=== PATIENT | female | born 1975 | race Caucasian/White ===

== ENCOUNTER 2016-07-19 00:28 | Emergency (ER) ==
[2016-07-19] MEDS ORDERED: SODIUM CHLORIDE 1,000 ML IV STA (00:37)
[2016-07-19 00:48] LABS: BASOPHILS # (AUTO) 0.1 K/uL (0-0.2); BASOPHILS % (AUTO) 0.8 % (0.0-3.0); EOSINOPHILS # (AUTO) 0.1 K/ul (0.0-0.7); EOSINOPHILS % (AUTO) 1.7 % (0.0-7.0); HEMATOCRIT 32.1 % (37.0-47.0); HEMOGLOBIN 10.7 g/dl (12.0-16.0); IMMATURE GRANULOCYTE % (AUTO) 0.3 % (0.0-5.0); LYMPHOCYTES % (AUTO) 39.3 (10.0-50.0); MEAN CORPUSCULAR HEMOGLOBIN 30.6 pg (27.0-31.0); MEAN CORPUSCULAR HGB CONC 33.3 (31.8-35.4); MEAN CORPUSCULAR VOLUME 91.7 fl (81.0-99.0); MONOCYTES # (AUTO) 0.6 K/uL (0.4-2.0); MONOCYTES % (AUTO) 7.6 (0-10); NEUTROPHILS # (AUTO) 3.8 K/ul (2.0-6.9); NEUTROPHILS % (AUTO) 50.3; PLATELET COUNT 244 10^3/uL (140-440)
[2016-07-19 00:58] LABS: SERUM PREGNANCY INTERNAL QC INTERNAL QC VALID
[2016-07-19 01:32] VITALS: BP 124/84; TEMP 98.2; BMI 30.8
[2016-07-19 01:34] LABS: ALANINE AMINOTRANSFERASE 14 U/L (12-78); ALBUMIN 3.8 g/dL (3.4-5.0); ALBUMIN/GLOBULIN RATIO 1.19; ALKALINE PHOSPHATASE 76 U/L (42-98); ASPARTATE AMINO TRANSFERASE 17 U/L (15-37); BILIRUBIN,TOTAL 0.17 mg/dL (0.00-1.20); BLOOD UREA NITROGEN 7 mg/dL (7-18); BUN/CREATININE RATIO 8.75; CALCIUM 10.5 mg/dL (8.2-10.2); CARBON DIOXIDE 26 mmol/L (21-32); CHLORIDE 101 mmol/L (98-107); CREATINE KINASE 55 U/L; GLUCOSE 102 mg/dL (70-110); SODIUM 135 mmol/L (136-145)
[2016-07-19 01:43] LABS: ABG BASE EXCESS 1 (-2.0-2.0); ABG HCO3 25.5 (22.0-26.0); ABG PCO2 39.6 mmHg (35-45); ABG PH 7.416 (7.35-7.45); ABG TCO2 27 (22.0-28.0)
--- NOTE | 2016-07-19 02:35 | CT ---
EXAM: CT angiogram chest with intravenous contrast 07/19/2016. Multi planar reformatted images obt ained. MIP and three-dimensional reconstructed images provided HISTORY: Chest pain COMPARISON: 12/27/2007 FINDINGS: The heart size appears within normal limits. No pericardial effusion. The aorta shows n o acute abnormality. There are no pulmonary arterial filling defects to suggest pulmonary embolus. Mild bilateral dependent atelectasis. There is no pulmonary consolidation. No pleural effusion or pneumothorax. Limited views of the upper abdomen show no acute abnormality. No acute osseous abnormality. IMPRESSION: 1. No evidence of pulmonary embolus. 2. Mild bilateral dependent atelectasis. No acute superimposed cardiopulmonary process.
[2016-07-19] MEDS ORDERED: K-DUR PO STA (03:01)
--- NOTE | 2016-07-19 03:05 | ED.PDOC ---
General ED Provider: Dr. MOLINA CHAVARRIA-ER Chief Complaint: Chest Pain Stated Complaint: i took a deep breath and felt a sharp pain in the left side of my chest --my legs have been cramping too Time Seen by Physician: 01:10 Mode of Arrival: Walk-In Information Source: Patient Exam Limitations: No limitations Primary Care Provider: DARRYL DOAN Nursing and Triage Documentation Reviewed and Agree: Yes Cardiovascular Complaint Exam - Chest Pain Complaint/Exam Onset: Sudden Duration: several secs Symptoms Are: Resolved Length of Chest Pain Episodes: 30 min ago Initial Severity: Mild Current Severity: Mild Location: Reports: Discrete, Left lateral Pain Radiates: Reports: None Character: Reports: Sharp, Stabbing Aggravating: Reports: Deep breaths Alleviating: Reports: Spontaneous resolution Associated Signs and Symptoms: Reports: Diaphoresis Related History: Reports: Current Diuretic. Denies: Current ARBs Related Surgical History: Reports: None History of Healthcare-Acquired Pneumonia: Reports: No AMI/ACS Risk Factors: Reports: Hypertension TAD Risk Factors: Reports: Hypertension Pulmonary Embolism Risk Factors: Reports: None Prior Care for this Complaint: No Recent Stress Test: No Recent Echo/LV Function: No JVD Present: No Subcutaneous Emphysema Present: No Diminshed Breath Sounds: No Reproducible Chest Wall Pain: No Bilateral Pulses Present: Yes Unequal Pulses Noted: No If Risk Factors for PE Consider: Chest CT with contrast If Risk Factors for TAD Consider: Chest CT with contrast Differential Diagnoses: Chest Wall Pain, Pulmonary Embolism Quality Indicator For Non-Traumatic Chest Pain/Syncope: EKG Performed Review of Systems - Review Of Systems Constitutional: Reports: No symptoms Eyes: Reports: No symptoms Ears, Nose, Mouth, Throat: Reports: No symptoms Respiratory: Reports: No symptoms Cardiac: Reports: No symptoms GI: Reports: No symptoms : Reports: No symptoms Musculoskeletal: Reports: No symptoms Skin: Reports: No symptoms Neurological: Reports: No symptoms Endocrine: Reports: No symptoms Hematologic/Lymphatic: Reports: No symptoms All Other Systems: Reviewed and Negative Past Medical History - Past Medical History Endocrine: Reports: Unknown Cardiovascular: Reports: Hypertension Respiratory: Reports: None Hematological: Reports: None Gastrointestinal: Reports: None Genitourinary: Reports: None Neuro/Psych: Reports: Anxiety Musculoskeletal: Reports: None Cancer: Reports: None Last Menstrual Period: 06/27/16 - Surgical History General Surgical History: Reports: Unknown - Family History Family History: Reports: Unknown - Social History Smoking Status: Current every day smoker, Heavy tobacco smoker Hx Substance Use: No Alcohol Screening: None - Immunizations Tetanus Shot up to Date: Yes Physical Exam - Physical Exam Appearance: Well-appearing Pain Distress: Mild Eyes: ANN, EOMI, Conjunctiva clear ENT: Ears normal, Nose normal, Oropharynx normal Neck: Supple Respiratory: Airway patent, Breath sounds clear, Breath sounds equal, Respirations nonlabored Cardiovascular: RRR GI/: Soft, Nontender, No masses, Bowel sounds normal, No Organomegaly Musculoskeletal: Normal strength, ROM intact, No edema, No calf tenderness Skin: Warm, Dry, Normal color Neurological: Sensation intact, Motor intact, Reflexes intact, Cranial nerves intact, Alert, Oriented Psychiatric: Affect appropriate, Mood appropriate, Anxious Interpretation - Radiology Interpretation Radiology Interpretation By: Radiologist Radiology Results: Negative Exam Interpreted: CT Scan - EKG Interpretation Time of EKG #1: 03:06 Rate: Normal Rhythm: Sinus Ectopy: None [place]: NL ST Segment: Normal Re-Evaluation - Re-Evaluation Time of Re-Evaluation: 03:06 Status: Improved (no paIn) Vital Signs Stable: Yes Pain Level: 1 Appearance: NAD Lungs: Clear Skin: Warm and Dry Neuro: Alert and Oriented X3 CV: RRR Critical Care Note - Critical Care Note Total Time (mins): 0 Course - Course Hematology/Chemistry: 07/19/16 00:45 07/19/16 00:45 Orders, Labs, Meds: Lab Review 07/19/16 07/19/16 00:34 00:45 WBC 7.60 RBC 3.50 L Hgb 10.7 L Hct 32.1 L MCV 91.7 MCH 30.6 MCHC 33.3 RDW Coeff of Cecy 15.8 H Plt Count 244 Immature Gran % (Auto) 0.3 Neut % (Auto) 50.3 Lymph % (Auto) 39.3 Jenkins % (Auto) 7.6 Eos % (Auto) 1.7 Baso % (Auto) 0.8 Immature Gran # (Auto) 0.0 Neut # 3.8 Lymph # 3.0 Jenkins # 0.6 Eos # 0.1 Baso # 0.1 Puncture Site lb O2 Saturation 98.0 ABG pH 7.416 ABG pCO2 39.6 ABG pO2 96.0 ABG HCO3 25.5 ABG Total CO2 27 ABG Base Excess 1 Misha Test + FiO2 % 21.0 Sodium 135 L Potassium 3.0 L Chloride 101 Carbon Dioxide 26 Anion Gap 11.0 BUN 7 Creatinine 0.80 Estimated GFR (MDRD) 80.00 BUN/Creatinine Ratio 8.75 Glucose 102 Calcium 10.5 H Total Bilirubin 0.17 AST 17 ALT 14 Alkaline Phosphatase 76 Total Creatine Kinase 55 Troponin I < 0.0100 Total Protein 7.0 Albumin 3.8 Globulin 3.2 Albumin/Globulin Ratio 1.19 TSH 1.030 Free T4 1.00 Serum , Qual Negative Orders Category Date Time Status ABG DRAW REQUEST Stat CARDIO 07/19/16 00:34 Completed EKG-(ED ONLY) Stat CARDIO 07/19/16 00:34 Completed NPO REMINDER: IMAGING ONCE CARE 07/19/16 00:36 Completed Director Of Materials Management [ED [employer] DRIED SALT APPLIED] .ONCE EMERGENCY 07/19/16 00:35 Active ED IV/MEDIPORT/POWERPORT .ONCE EMERGENCY 07/19/16 00:36 Active ABG Stat LAB 07/19/16 00:34 Completed CBC W/ AUTO DIFF Stat LAB 07/19/16 00:45 Completed COMPREHENSIVE METABOLIC PANEL Stat LAB 07/19/16 00:45 Completed CREATINE KINASE Stat LAB 07/19/16 00:45 Completed FREE T4 (FREE THYROXINE) Stat LAB 07/19/16 00:45 Completed SERUM Stat LAB 07/19/16 00:45 Completed THYROID STIMULATING HORMONE Stat LAB 07/19/16 00:45 Completed TROPONIN I Stat LAB 07/19/16 00:45 Completed 0.9 % Sodium Chloride [Saline Flush] MEDS 07/19/16 00:36 Ordered 1 syr IVF PRN PRN Potassium Chloride [K-Dur] MEDS 07/19/16 03:01 Stat 40 meq PO ONCE STA Sodium Chloride 0.9% [Sodium Chloride] 1,000 ml MEDS 07/19/16 00:37 Active IV 100 mls/hr CT CHEST PE PROTOCOL Stat RADS 07/19/16 00:36 Completed Medications Generic Name Dose Route Start Last Admin Trade Name Freq PRN Reason Stop Dose Admin Sodium Chloride 1,000 mls @ 100 mls/hr 07/19/16 00:37 07/19/16 01:31 Sodium Chloride IV 07/19/16 10:36 100 mls/hr .Q10H STA Administration Potassium Chloride 40 meq 07/19/16 03:01 K-Dur PO 07/19/16 03:02 ONCE STA Sodium Chloride 1 syr 07/19/16 00:36 Saline Flush IVF PRN PRN To flush IV Vital Signs: Temp Pulse Resp BP Pulse Ox 07/19/16 01:05 98.2 F 90 20 124/84 99 VICKY Risk Score VICKY Risk Score: Risk Score Odds of by 30D 0 0.1 (0.1-0.2) 1 0.3 (0.2-0.3) 2 0.4 (0.3-0.5) 3 0.7 (0.6-0.9) 4 1.2 (1.0-1.5) 5 2.2 (1.9-2.6) 6 3.0 (2.5-3.6) 7 4.8 (3.8-6.1) Departure - Departure Time of Disposition: 03:06 Disposition: HOME SELF-CARE Discharge Problem: Chest wall pain, Hypokalemia Instructions: Hypokalemia (ED) Condition: Good Pt referred to PMD for follow-up: Yes Additional Instructions: f/u with dr doan this week--get potassium recheckec Allergies/Adverse Reactions: Allergies amoxicillin trihydrate [From Augmentin] Adverse Reaction (Mild, Verified 02:56) Nausea potassium clavulanate [From Augmentin] Adverse Reaction (Mild, Verified 02:55) acetaminophen [From Tylenol-Codeine #3] Adverse Reaction (Unverified 09/19/15 11 :06) codeine [From Tylenol-Codeine #3] Adverse Reaction (Unverified 09/19/15 11:06) Home Medications: Ambulatory Orders Alprazolam [Xanax] 0.5 mg PO BEDTIME 11/24/13 Hydrocodone/Acetaminophen [Lortab 7.5-325 mg Tablet] 1 tab PO TID PRN 11/24/13 Omeprazole [Prilosec] 20 mg PO BIDAC 11/24/13 Pravastatin Sodium [Pravachol] 40 mg PO DAILY 11/24/13 Bisoprolol Fumarate [Zebeta] 5 mg PO DAILY 07/19/16 Linaclotide [Linzess] 290 mcg PO DAILY 07/19/16 Losartan/Hydrochlorothiazide [Losartan-Hctz 50-12.5 mg Tab] 1 each PO DAILY 07/02 Phentermine HCl 37.5 mg PO DAILY 07/19/16 Disposition Discussed With: Patient, Family
== END 2016-07-19 03:15 | disposition home or self-care (01) ==
LOC: ED 00:28
DX: R07.89 Other chest pain (principal); E87.6 Hypokalemia; I10 Essential (primary) hypertension; F17.210 Nicotine dependence, cigarettes, uncomplicated
CPT/HCPCS: 36415; 80053; 82550; 82803; 84439; 84443; 84484; 84703; 85025; 93005; 93010; 96360; 96361; 99283

== ENCOUNTER 2017-04-22 14:23 | Outpatient (CLI) ==
--- NOTE | 2017-04-22 14:54 | DI ---
Exam: Two x-rays of the right humerus. Comparison: None available. Reason for exam: Injury with pain. FINDINGS: The humeral cortex is intact. The anatomic alignment as well maintained. No unexplained calcific soft tissue density or radiopaque retained foreign body. Impression: No acute fracture or malalignment is seen in the right humerus.
--- NOTE | 2017-04-22 14:59 | CT ---
EXAM: CT Head HISTORY: Injury, pain COMPARISON: None TECHNIQUE: CT head performed without contrast FINDINGS: There is no mass effect, midline shift, or intracranial hemmorhage. [place] white differenti ation is preserved. There is no extra-axial collection. The ventricles, sulci, and basal cisterns a re patent and symmetric. There is no depressed calvarial fracture. The mastoid air cells are clear. The visualized paranasal sinuses are clear. IMPRESSION: No acute intracranial abnormality.
== END 2017-04-22 14:24 | disposition home or self-care (01) ==
LOC: RAD 14:23
PROVIDERS: ATTEND Internal Medicine
DX: R51 Headache (principal); M79.601 Pain in right arm; S09.90XA Unspecified injury of head, initial encounter

== ENCOUNTER 2017-06-01 10:23 | Observation (INO) ==
[2017-06-01] MEDS: XOPENEX 1.25 MG NEB SCH ×2 (11:10→18:04)
[2017-06-01 11:38] VITALS: BMI 32.2
[2017-06-01] MEDS: ROCEPHIN 1 GM in SODIUM CHLORIDE 50 ML IV SCH (11:53)
[2017-06-01] MEDS: SOLU-CORTEF 250 MG IVP SCH ×2 (11:54→21:44)
[2017-06-01] MEDS: TORADOL IVP SCH ×2 (11:54→21:43)
[2017-06-01] MEDS: DEXTROSE 5%-1/2NS IV SOLUTION 1,000 ML IV SCH (12:02)
[2017-06-01] MEDS: PHENERGAN WITH CODEINE 6.25/10 MG/5 ML PO SCH ×3 (12:17→23:50)
[2017-06-01] MEDS: ZEBETA PO SCH (14:12)
[2017-06-01] MEDS: NORCO 7.5-325 PO SCH ×2 (14:13→21:43)
--- NOTE | 2017-06-01 15:28 | DI ---
Exam: Two x-rays of the chest. Comparison: CT chest performed 07/19/2016. Reason for exam: Cough. FINDINGS: No pneumothorax, pleural effusion, focal consolidation. The cardiac silhouette is not enl arged. The imaged osseous structures appear grossly unremarkable without acute fracture. Impression: No acute cardiopulmonary process.
[2017-06-01] MEDS: PROTONIX PO SCH (18:12)
[2017-06-01] MEDS ORDERED: XANAX PO SCH (21:00)
[2017-06-02] MEDS: XOPENEX 1.25 MG NEB SCH ×3 (00:08→11:13)
[2017-06-02] MEDS: DEXTROSE 5%-1/2NS IV SOLUTION 1,000 ML IV SCH (03:43)
[2017-06-02] MEDS: PHENERGAN WITH CODEINE 6.25/10 MG/5 ML PO SCH ×2 (05:38→11:44)
[2017-06-02] MEDS: PROTONIX PO SCH (05:38)
[2017-06-02] MEDS: SOLU-CORTEF 250 MG IVP SCH ×2 (05:38→12:33)
[2017-06-02 06:20] VITALS: TEMP 98
[2017-06-02] MEDS: ROCEPHIN 1 GM in SODIUM CHLORIDE 50 ML IV SCH (08:49)
[2017-06-02] MEDS: NORCO 7.5-325 PO SCH (08:50)
[2017-06-02] MEDS: ZEBETA PO SCH (08:50)
[2017-06-02 10:10] VITALS: BP 97/57
[2017-06-02] MEDS: TORADOL IVP SCH (10:14)
--- NOTE | 2017-06-03 10:51 | PN ---
DATE OF SERVICE: 06/02/17 SUBJECTIVE: Up and about feeling a lot better. Cough is much less and appetite has improved. PHYSICAL EXAMINATION: HEENT: Head normocephalic, atraumatic. Eyes: Extraocular muscles are intact. Pupils are equal, round and reactive to light and accommodation. Ears: No lesions. Nose appeared normal. Throat: No exudate or erythema. NECK: Supple. No JVP, no carotid bruit. No lymphadenopathy or thyromegaly. LUNGS: Decreased breath sounds with good air entry. Yesterday she had a lot of wheezing. Percussion note normal. Chest symmetrical. HEART: S1, S2, no S3. No murmurs. No cyanosis or clubbing. No ascites. Pulses: Dorsalis pedis and posterior tibial pulses +1 to +2 both sides. ABDOMEN: Soft. Nontender. Bowel sounds active. No CVA tenderness. No mass felt. EXTREMITIES: No edema. Full range of motion of all extremities, equal. NEUROLOGIC: No focal deficit. Cranial nerves II through XII are grossly intact. No headache, no double vision or headache. SKIN: Not dry. Intact. Turgor - normal. LYMPHATIC: No palpable lymph nodes/no lymphedema. MUSCULOSKELETAL: Normal joints with no swelling. Muscle tone is normal. PLAN: 1. Strongly advised to quit smoking 2. Continue Antibiotics and steroids 3. Will discharge the patient home CONDITION: Stable. The patient was seen and examined with the Nurse Practitioner. TIME SPENT: More than 30 minutes. Plan and coordination of the patient's care discussed in the presence of nurse. GEOR[place]IANA
--- NOTE | 2017-06-06 13:44 | PN ---
CODING FOR BILLING 06/01/17 OBSERVATION/LEVEL 5 06/02/17 DISCHARGE MTDD
--- NOTE | 2017-06-30 11:41 | PN ---
DATE OF SERVICE: 06/02/17 SUBJECTIVE: The patient is examined while lying in bed. She states she slept well. She is in here for observation with acute bronchitis, pneumonitis and pleuritic type pain. She states that she already feels better. She has not required any oxygen. She believes the IV steroids have significantly helped her and she would like to go home. REVIEW OF SYSTEMS: CONSTITUTIONAL: No night sweats. No fatigue, malaise, lethargy. No fever or chills. HEENT: Eyes: No visual changes. No eye pain. No eye discharge. ENT: No runny nose. No epistaxis. No sinus pain. No sore throat. No odynophagia. No congestion. RESPIRATORY: Positive for cough and wheeze. No shortness of breath. CARDIOVASCULAR: No angina symptoms. No CHF symptoms. No atypical chest pain for CAD. No palpitations. No orthopnea. GASTROINTESTINAL: No abdominal pain. No nausea or vomiting. No diarrhea or constipation. No hematemesis. No hematochezia. GENITOURINARY: No urgency. No frequency. No dysuria. No hematuria. No obstructive symptoms. No discharge. No pain. No significant abnormal bleeding. MUSCULOSKELETAL: No musculoskeletal pain; no joint swelling. NEUROLOGICAL: No headache. No neck pain. No syncope. No seizures. No dizziness. PSYCHIATRIC: Not anxious. No depression. No suicidal thoughts. No homicidal thoughts. SKIN: No rash. No lesions. No wounds. ENDOCRINE: No unexplained weight loss. No weight gain. HEMATOLOGIC/LYMPHATIC: No anemia. No purpura. No petechiae. No prolonged or excessive bleeding. No palpable lymph nodes. PHYSICAL EXAMINATION: HEENT: Head normocephalic, atraumatic. Eyes: Extraocular muscles are intact. Pupils are equal, round and reactive to light and accommodation. Ears: No lesions. Nose appeared normal. Throat: No exudate or erythema. NECK: Supple. No JVD, no carotid bruit. No lymphadenopathy or thyromegaly. LUNGS: The patient has bilateral rhonchi with very faint mild expiratory wheeze otherwise unremarkable. Percussion note normal. Chest symmetrical. HEART: S1, S2, no S3. No murmurs. No cyanosis or clubbing. No ascites. Pulses: Dorsalis pedis and posterior tibial pulses +1 to +2 both sides. ABDOMEN: Soft. Nontender. Bowel sounds active. No CVA tenderness. No mass felt. EXTREMITIES: No edema. Full range of motion of all extremities, equal. NEUROLOGIC: No focal deficit. Cranial nerves II through XII are grossly intact. No headache, no double vision or headache. SKIN: Not dry. Intact. Turgor - normal. LYMPHATIC: No palpable lymph nodes/no lymphedema. MUSCULOSKELETAL: Normal joints with no swelling. Muscle tone is normal. ASSESSMENT: 1. ACUTE BRONCHITIS/PNEUMONITIS 2. PLEURITIC TYPE PAIN 3. WEAKNESS PLAN: 1. We will discharge the patient today. 2. She has agreed to stay until after lunch to receive her next dose of IV Solu -Medrol 125 mg and will discharge her home with Phenergan with Codeine 1 to 2 teaspoons q.6hr p.r.n., ProAir inhaler two puffs, use three times a day, Scheduled until the cough resolves, Keflex 500 mg t.i.d. for the next 10 days and Prednisone 20 mg b.i.d. for the next 3 days and then 10 mg b.i.d. for the next 7 days. 3. All of her vital signs have been stable. This morning temperture 98, heart rate 100, respirations 16, pulse ox 97% on room air, BP 100/62. Again, she states she already feels better. She wanted to go out and smoke last night, which she did not. 3. Information has been provided to her regarding smoking cessation and the need to do this. 4. She will do her nebulizar at home. 5. Will followup with her next week. TIME SPENT: More than 30 minutes. Plan and coordination of the patient's care discussed in the presence of nurse. GEOR[place]IANA
--- NOTE | 2017-07-29 11:04 | SSS ---
DATE OF SERVICE: 06/02/17 REASON FOR OBSERVATION: Flu syndrome with bronchitis/pneumonitis. HISTORY OF PRESENT ILLNESS: Sweats, fever nightly times 2 weeks. Coughing, congestion, achy, Wheezing. Seen 05/23/17 and treated with Tamiflu, Z-pack, Decadron, Prednisone and Phenergan with codeine. REVIEW OF SYSTEMS: CONSTITUTIONAL: No night sweats. No fatigue, malaise, lethargy. No fever or chills. HEENT: Eyes: No visual changes. No eye pain. No eye discharge. ENT: No runny nose. No epistaxis. No sinus pain. No sore throat. No odynophagia. No ear pain. No congestion. Pallor positive. RESPIRATORY: Cough, no congestion. No hemoptysis. Shortness of breath with minimal exertion. Breath sounds diminished. CARDIOVASCULAR: No angina symptoms. No CHF symptoms. No atypical chest pain for CAD. No palpitations. No orthopnea. Pleuritic chest pain. GASTROINTESTINAL: No abdominal pain. No nausea or vomiting. No diarrhea or constipation. No hematemesis. No hematochezia. GENITOURINARY: No dysuria. No hematuria. No obstructive symptoms. No discharge. No pain. No significant abnormal bleeding. MUSCULOSKELETAL: No musculoskeletal pain. No joint swelling. NEUROLOGICAL: Awake, alert, oriented to time, place and person. No headache. No neck pain. No syncope. No seizures. No dizziness. PSYCHIATRIC: Not anxious. No depression. No suicidal thoughts. No homicidal thoughts. SKIN: No rash. No lesions. No wounds. Dry. ENDOCRINE: No unexplained weight loss. No weight gain. HEMATOLOGIC/LYMPHATIC: No anemia. No purpura. No petechiae. No prolonged or excessive bleeding. No palpable lymph nodes. PAST HISTORY: Head injury Hypertension Cervical radiculopathy DJD spine KARLENE Dyslipidemia Anemia Metabolic Syndrome Fibromyalgia Restless leg syndrome Bronchitis PERSONAL/FAMILY HISTORY/SOCIAL HISTORY: and lives with spouse and children. Drives a bus. Tobacco use 1/2 pack per day. Family History is significant for hypertension, Diabetes mellitus, Dyslipidemia and CAD. PHYSICAL EXAMINATION: GENERAL: The patient is a female age [age] year old. Height 63.5 inches , weight 185, BMI 32.3. VITAL SIGNS: Temperature 98.5, pulse 104, 140/95 and 132/85, respiratory rate 18 and oxygen saturation 99%. HEENT: Head normocephalic, atraumatic. Eyes: Extraocular muscles are intact. Pupils are equal, round and reactive to light and accommodation. Ears: No lesions. Nose appeared normal. Throat: No exudate or erythema. NECK: Supple. No JVD, no carotid bruit. No lymphadenopathy or thyromegaly. LUNGS: Decreased breath sounds but clear to auscultation. Percussion note normal. Chest symmetrical. HEART: S1, S2, no S3. No murmurs. No cyanosis or clubbing. No ascites. Pulses: Dorsalis pedis and posterior tibial pulses +1 to +2 both sides. ABDOMEN: Soft. Nontender. Bowel sounds active. No CVA tenderness. No mass felt. EXTREMITIES: No edema. Full range of motion of all extremities, equal. NEUROLOGIC: No focal deficit. Cranial nerves II through XII are grossly intact. No headache, no double vision or headache. SKIN: Dry. Intact. Turgor - normal. LYMPHATIC: No palpable lymph nodes/no lymphedema. MUSCULOSKELETAL: Normal joints with no swelling. Muscle tone is normal. EDUCATION CARRIED OUT: Smoking Office records reviewed: Yes. ALLERGIES: Acetaminophen Amoxicillin Trihydrate Codeine Potassium Clavulanate MEDICATIONS: Xanax Lortab Prilosec Pravachol Zebeta Linzess Losartan Phenergan with Codeine Sulfa Skelaxin Simvastatin Paxil Cymbalta LABS/EKG'S/X-RAY/ECHO/ABG: Chest x-ray no acute findings. WBC 12.46, hgb 11.2, hct 33.6, Calcium 10.8. Influenza A and B negative. PROGRESS NOTES: See EMR. DIAGNOSES: 1. Acute bronchitis 2. Flu syndrome 3. Obesity 4. DJD spine RECOMMENDATIONS/PLAN: 1. Discharge home 2. Diet as tolerated, liquids encouraged 3. Activity as tolerated 4. Continue home medications. 5. Keflex 500mg three times a day x 10 days 6. Phenergan with Codeine 1-2 teaspoons Q 6 PRN for cough 7. Prednisone 20mg twice a day for 5 days then 10mg twice a day for 5 days 8. ProAir 1-2 puffs Q 4 hours PRN cough. 9. Office appointment June 09 at 10am. TIME SPENT: More than 70 minutes. [facility]
== END 2017-06-02 13:00 | disposition home or self-care (01) ==
LOC: MEDSURG A 10:23
PROVIDERS: ADMIT Internal Medicine; ATTEND Internal Medicine
DX: J20.9 Acute bronchitis, unspecified (principal); R09.89 Other specified symptoms and signs involving the circulatory and respiratory systems; R07.81 Pleurodynia; R53.1 Weakness; E66.9 Obesity, unspecified; M47.9 Spondylosis, unspecified; Z79.899 Other long term (current) drug therapy
CPT/HCPCS: 36415; 80053; 85025; 87040; 87502; 93005; 93010; 94640; 96361; 96365; 96366; 96375; 96376; 99217; 99220